=== PATIENT | female | born 1995 | race Caucasian/White ===

== ENCOUNTER 2024-05-07 11:51 | Emergency (ER) | payer MEDICAID ==
[~2024-05-07] VITALS: Ht 129.5 cm; Wt 43.3 kg
[2024-05-07 12:07] VITALS: BP 114/78; PULSE 118; RESP 18; TEMP 99; O2SAT 14
[2024-05-07] MEDS ORDERED: NAPR-1704 PO (14:10)
[2024-05-07 14:17] VITALS: PULSE 89; RESP 18; TEMP 99; O2SAT 16
== END 2024-05-07 14:17 | disposition home or self-care (01) ==
LOC: MED 11:51
DX: D21.11 Benign neoplasm of connective and other soft tissue of right upper limb, including shoulder (principal); M19.021 Primary osteoarthritis, right elbow; M19.011 Primary osteoarthritis, right shoulder; Z79.1 Long term (current) use of non-steroidal anti-inflammatories (NSAID)
CPT/HCPCS: 73030; 73080; 81025; 99284